=== PATIENT | female | born 1965 | race Native Hawaiian/Other Pacific Islander ===

== ENCOUNTER 2017-01-01 09:15 | Day surgery (SDC) | payer BC ==
[2016-12-29 13:44] VITALS: BMI 26.9
[2017-01-01 09:36] VITALS: O2SAT 100
[2017-01-01] MEDS ORDERED: Propofol 10 mg/ml Inj (20 ML) ONE (10:39)
[2017-01-01] MEDS ORDERED: Sodium Chloride 0.9% 1,000 ML IV SCH (11:15)
[2017-01-01 11:57] VITALS: RESP 16
[2017-01-01 14:15] VITALS: BP 129/71
[2017-01-01 14:16] VITALS: PULSE 59; TEMP 98
== END 2017-01-01 12:41 | disposition home or self-care (01) ==
LOC: ENDO 09:15
PROVIDERS: ATTEND Internal Medicine Gastroenterology
DX: Z12.11 Encounter for screening for malignant neoplasm of colon (principal); K64.1 Second degree hemorrhoids; E03.9 Hypothyroidism, unspecified; Z80.0 Family history of malignant neoplasm of digestive organs
CPT/HCPCS: 45378; 84703; J2704; J7040 ×2